=== PATIENT | female | born 1945 | race Caucasian/White ===

== ENCOUNTER 2019-05-15 08:49 | Day surgery (SDC) | payer MEDICARE ==
[2019-05-14 16:38] LABS: BASOPHILS % (AUTO) 0.4 % (0.0-5.0); EOSINOPHILS % (AUTO) 4.1 % (0.0-8.0); HEMATOCRIT 40.8 % (36-48); LYMPHOCYTES % (AUTO) 19.2 % (21.0-51.0); MEAN CORPUSCULAR HEMOGLOBIN 28.3 pg (27.0-33.0); MEAN CORPUSCULAR HGB CONC 31.9 g/dL (32.0-36.0); MEAN CORPUSCULAR VOLUME 88.9 fL (79-99); MONOCYTES % (AUTO) 7.6 % (3.0-13.0); NEUTROPHILS % (AUTO) 68.5 % (40.0-77.0); PLATELET COUNT (AUTO) 270 K/uL (130-400); RED BLOOD CELL COUNT(AUTO) 4.59 MIL/uL (4.00-5.50); RED CELL DISTRIBUTION WIDTH 14.4 % (11.0-15.5); WHITE BLOOD COUNT (AUTO) 4.6 K/uL (4.8-10.8)
[2019-05-14 16:50] VITALS: BP 138/65
[2019-05-14 16:55] LABS: CREATININE 0.8 mg/dL (0.5-1.5); POTASSIUM 4.2 mmol/L (3.5-5.1)
--- NOTE | 2019-05-14 18:42 | NUR ---
EKG DR. CUEVAS INFORMED OF EKG. NO ORDERS RECEIVED. PROCEED WITH PLANNED PROCEDURE.
[~2019-05-15] VITALS: Ht 167.6 cm; Wt 78.0 kg
[2019-05-15] VITALS (20 sets, daily range): BP systolic 93–117; BP diastolic 43–59
[~2019-05-15 08:49] MED LIST: ADV250 IH; ALBU0.63 IH; ALBU8.5H8 IH; ASPI-555 PO; CEFAZOLIN SODIUM 1 GM VIAL IVP ONE; CELE200C PO; COLE625 PO; FEXO1TAB8 PO; LACTATED RINGERS 1000ML 1,000 ML IV SCH; LEVO50TA4 PO; OMEG-116 PO; TRAM50TA4 PO
[2019-05-15] MEDS ORDERED: CEFAZOLIN SODIUM 1 GM VIAL ONE (09:46)
[2019-05-15] MEDS ORDERED: ROPIVACAINE 0.5% 5MG/ML 30ML IJ ONE (10:59)
[2019-05-15] MEDS ORDERED: MIDAZOLAM HCL 1 MG/ML 2ML VIAL ONE (11:04)
[2019-05-15] MEDS ORDERED: PROPOFOL 10 MG/ML 20ML VIAL IV ONE (11:04)
[2019-05-15] MEDS ORDERED: ROCURONIUM 10MG/1ML SYR 10 MG/ML ML ONE (11:04)
[2019-05-15] MEDS ORDERED: FENTANYL CITRATE PF 50 MCG/1 ML 5ML AMP IV ONE (11:04)
[2019-05-15] MEDS ORDERED: LIDOCAINE PF 2% 5ML ABBOJECT ONE (11:04)
[2019-05-15] MEDS ORDERED: EPHEDRINE SULFATE 50 MG/ML AMPULE ONE (11:13)
[2019-05-15] MEDS ORDERED: GLYCOPYRROLATE 1 MG/5 ML SYRINGE ONE (11:17)
[2019-05-15] MEDS ORDERED: NEOSTIGMINE 5MG/5ML SYR IV ONE (11:17)
[2019-05-15] MEDS ORDERED: ONDANSETRON HCL 4 MG/2 ML VIAL ONE ×2 (12:20→12:57)
[2019-05-15] MEDS ORDERED: KETOROLAC TROMETHAMINE 30MG/ML ONE (12:20)
[2019-05-15] MEDS ORDERED: DEXAMETHASONE SOD PHOSPHATE 10MG/ML 1ML VIAL ONE (12:20)
[2019-05-15] MEDS ORDERED: METOCLOPRAMIDE 10 MG/2 ML VIAL ONE (13:07)
--- NOTE | 2019-05-15 13:25 | NUR ---
PHENERGAN 6.25MG IM. GIVEN TO RT DELTOID, IM. Addendum: 05/15/19 at 1338 by PAL GUEVARA RN RN Amended: Links added.
== END 2019-05-15 15:15 | disposition home or self-care (01) ==
LOC: DAH 08:49
PROVIDERS: ATTEND Orthopaedic Surgery
DX: M75.102 Unspecified rotator cuff tear or rupture of left shoulder, not specified as traumatic (principal); M75.122 Complete rotator cuff tear or rupture of left shoulder, not specified as traumatic; M75.52 Bursitis of left shoulder; M75.42 Impingement syndrome of left shoulder; M19.90 Unspecified osteoarthritis, unspecified site; J45.909 Unspecified asthma, uncomplicated; K21.9 Gastro-esophageal reflux disease without esophagitis; I10 Essential (primary) hypertension; E03.9 Hypothyroidism, unspecified; Z88.5 Allergy status to narcotic agent; Z88.8 Allergy status to other drugs, medicaments and biological substances
CPT/HCPCS: 23412; 23415; 36415; 64415; 71045; 76942; 80048; 85025; 93005; A4215; A4221; A4222; A4223; A4450; A4565; A4606; A4649 ×2; A4663; A4930; A6204; A6207; A6223; A6260; C1713 ×2; J0690; J1100; J1885; J2001; J2250; J2405 ×2; J2704; J2710; J2765; J2795; J3010; J3490 ×2; J7120 ×2

== ENCOUNTER → 2023-04-05 | Outpatient (CLI) | payer MEDICARE ==
[~2023-04-05] MED LIST changes: -ASPI-555 PO; +ASPI-556 PO; -CEFAZOLIN SODIUM 1 GM VIAL IVP ONE; -COLE625 PO; +COLE625T30 PO; -LACTATED RINGERS 1000ML 1,000 ML IV SCH
== END | disposition home or self-care (01) ==
LOC: RAH 10:35
PROVIDERS: ATTEND Internal Medicine Gastroenterology
DX: R10.13 Epigastric pain (principal)
CPT/HCPCS: 74150

== ENCOUNTER → 2023-08-03 | Outpatient (CLI) | payer MEDICARE ==
[~2023-08-03] MED LIST changes: -CELE200C PO; +CELE200C3 PO
== END | disposition home or self-care (01) ==
LOC: RAH 11:12
PROVIDERS: ATTEND Surgery
DX: R10.9 Unspecified abdominal pain (principal)
CPT/HCPCS: 78227; A9537

== ENCOUNTER → 2024-02-09 | Outpatient (CLI) | payer MEDICARE ==
[~2024-02-09] MED LIST changes: +ALEN35TA53 PO; +CETI-89 PO; +CYAN100022 SL; +FAMO20TA8 PO; +FLUT1DIS3 IH; +MONT-39 PO; +PYRI100L2 PO; +SUCR1ORA15 PO; +SUPER B COMPLEX PO; +TRAM100T34 PO; +UBID100T7 PO
--- NOTE | 2024-02-09 12:18 | HMCIMG ---
UPPER GI TRACT, WO KUB REASON: DIAPHRAGMATIC HERNIS W/O OBSTRUCTION OR GANGRENE COMPARISON: None TECHNIQUE: Air contrast upper GI was performed with fluoroscopic observation. Fluoroscopy time was 0.6 minutes. 6 short cine sequences were acquired. FINDINGS: There is a moderate-sized hiatal hernia. Esophagus appears otherwise unremarkable. There is normal esophageal peristalsis. There is intermittent reflux into the hiatal hernia and into the esophagus during the exam, to the level of the thoracic inlet, with mild distention of the lower cervical esophagus. Stomach appears otherwise normal. There is no mass or ulcer. There is no outlet obstruction. Duodenal C-loop appears normal as does the duodenal bulb. IMPRESSION: 1. Moderate hiatal hernia. 2. Moderate to marked intermittent gastroesophageal reflux. 2. Otherwise unremarkable exam.
== END | disposition home or self-care (01) ==
LOC: RAH 10:00
PROVIDERS: ATTEND Surgery
DX: K44.9 Diaphragmatic hernia without obstruction or gangrene (principal); K21.9 Gastro-esophageal reflux disease without esophagitis
CPT/HCPCS: 36415; 74240; 86850; 86900; 86901

== ENCOUNTER 2024-04-17 10:36 | Observation (INO) | payer MEDICARE ==
[2024-04-13 11:49] VITALS: BP 128/88; PULSE 51; RESP 14; TEMP 98.4
[2024-04-13 11:55] LABS: EOSINOPHILS # (AUTO) 0.04 K/uL (0.00-0.70); EOSINOPHILS % (AUTO) 1.2 % (0.0-8.0); HEMATOCRIT 42.4 % (36-48); IMMATURE GRANULOCYTE ABSOLUTE 0.01 K/uL (0-1); LYMPHOCYTES # (AUTO) 0.5 K/uL (1.0-4.8); LYMPHOCYTES % (AUTO) 15.1 % (21.0-51.0); MEAN CORPUSCULAR HEMOGLOBIN 30.9 pg (27.0-33.0); MEAN CORPUSCULAR VOLUME 93.6 fL (79-99); MONOCYTES # (AUTO) 0.4 K/uL (0.1-1.0); MONOCYTES % (AUTO) 10.2 % (3.0-13.0); NEUTROPHILS # (AUTO) 2.5 K/uL (1.8-7.7); NEUTROPHILS % (AUTO) 73.2 % (40.0-77.0); PLATELET COUNT (AUTO) 207 K/uL (130-400); RED BLOOD CELL COUNT(AUTO) 4.53 MIL/uL (4.00-5.50); RED CELL DISTRIBUTION WIDTH 14.1 % (11.0-15.5); WHITE BLOOD COUNT (AUTO) 3.4 K/uL (4.8-10.8)
[2024-04-13 12:13] LABS: INR 0.95 (0.85-1.15); PROTHROMBIN TIME 10.7 SEC (9.6-11.6)
[2024-04-13 12:14] LABS: PARTIAL THROMBOPLASTIN TIME 27.4 SEC (26.3-35.5)
[2024-04-13 12:15] LABS: CREATININE 0.9 mg/dL (0.5-1.0); POTASSIUM 5.3 mmol/L (3.5-5.1)
--- NOTE | 2024-04-16 11:23 | EKG ---
[facility] Test Date: 2024-04-13 Test Time: 12:36:08 Pat Name: ELIZA DOYLE Department: [facility] Room: Gender: F [employer]er: [id number] : 1945 Requested By: ARTHUR CUEVAS Order Number: [id number] Reading MD: Cathy Lopez Measurements Intervals [place] Rate: 44 P: 25 OR: 228 QRS: 31 QRSD: 82 T: 54 QT: 438 QTc: 347 Interpretive Statements Sinus bradycardia Atrial premature complexes in couplets Borderline prolonged OR interval Probable anteroseptal infarct, old Compared to ECG 05/14/2019 15:56:49 Atrial premature complex(es) now present Myocardial infarct finding now present Poor R-wave progression no longer present Electronically Signed On 04-16-2024 14:04:33 [employer] by Cathy Lopez Please click the below link to view image of tracing.
--- NOTE | 2024-04-16 11:33 | NUR ---
RE: LABS/EKG REPORTED EKG RESULTS AND BMP RESULTS TO DR CUEVAS, NO NEW ORDERS RECEIVED.
[2024-04-17] VITALS (24 sets, daily range): BP systolic 92–152; BP diastolic 52–97; PULSE 48–66; RESP 13–20; TEMP 97.5–98.6; O2SAT 96
[~2024-04-17] VITALS: Ht 166.4 cm; Wt 77.7 kg
[~2024-04-17 10:36] MED LIST changes: -ADV250 IH; -ALBU0.63 IH; -ASPI-556 PO; -COLE625T30 PO; -FEXO1TAB8 PO; -OMEG-116 PO; -TRAM100T34 PO
[2024-04-17 11:47] LABS: CREATININE 0.8 mg/dL (0.5-1.0); POTASSIUM 4.4 mmol/L (3.5-5.1)
[2024-04-17] MEDS: LACTATED RINGERS 1000ML 1,000 ML IV ONE (12:05)
[2024-04-17] MEDS: ceFAZolin SODIUM 2 GM VIAL ONE (12:05)
[2024-04-17] MEDS ORDERED: LIDOCAINE HCL MPF 1% 5ML VIAL ONE (14:12)
[2024-04-17] MEDS ORDERED: proPOFol 10 MG/ML 20ML VIAL IV ONE (14:12)
[2024-04-17] MEDS ORDERED: rocuRONium bROMide 10MG/1ML 5ML VL ONE (14:13)
[2024-04-17] MEDS ORDERED: MIDAZOLAM HCL 1 MG/ML 2ML VIAL ONE (14:13)
[2024-04-17] MEDS ORDERED: FENTanyl CITRate PF 50 MCG/1 ML 5ML AMP IV ONE (14:13)
[2024-04-17] MEDS ORDERED: GLYCOPYRROLATE 0.2 MG/ML 5 ML VIAL ONE (14:17)
[2024-04-17] MEDS: INDOCYANINE GREEN 25 MG VIAL IJ ONE (14:30)
[2024-04-17] MEDS: BUPIvacaine/PF 0.25% 30ML VIAL IJ ONE (14:41)
[2024-04-17] MEDS ORDERED: NEOSTIGMINE METHYLSULFATE 1MG/ML IV ONE (16:27)
--- NOTE | 2024-04-17 17:09 | OP ---
Operative Note: DATE OF PROCEDURE: 04/17/24 SURGEON: BRITTA PACHECO MD [employer] OPERATOR: [Please review operative record] ANESTHESIA: [General and local] ANESTHESIOLOGIST/GEOTECHNICAL INTERN: [Please review operative record] PREOPERATIVE DIAGNOSIS: [Diaphragmatic hernia, severe gastroesophageal reflux disease, biliary dyskinesia] POSTOPERATIVE DIAGNOSIS: [Same] SYNOPSIS: [Mildly inflamed gallbladder, hiatal hernia measuring 4 cm containing incarcerated fundus and cardia.] PROCEDURE: [Robotic assisted laparoscopic hiatal hernia repair, mesh placement, anterior partial fundoplication, intraoperative EGD, robotic assisted laparoscopic cholecystectomy, ICG green cholangiogram] ESTIMATED BLOOD LOSS: [20 cc] INDICATIONS: [Patient is a 79-year-old female with chronic reflux who failed medical management with PPI and dietary changes. Found to have a moderate-sized diaphragmatic hernia on EGD and upper GI. In addition patient found to have right upper quadrant postprandial abdominal pain. Found to have biliary dyskinesia on HIDA scan. Recommendation was given for hiatal hernia repair with mesh and fundoplication in addition to cholecystectomy. Risks, benefits, alternatives were discussed with the patient. All questions were answered. Patient agreed to proceed with surgical procedure.] DESCRIPTION OF PROCEDURE: [After appropriate consent was obtained, the patient was transferred to the operating room placed in supine position on the operating table. SCDs were placed, preop antibiotics were given. Patient underwent induction of general anesthesia, endotracheal intubation. Patient was then prepped and draped in usual sterile fashion. Time-out was performed. Through a left subcostal incision, Veress needle was inserted through the peritoneal cavity. Insufflation was allowed to 12 mmHg. Through a supraumbilical incision, 8 mm trocar and laparoscope were inserted into the peritoneal cavity using [employer]. Veress needle and this vicinity were examined with no signs of injury. Rest of my trocars were placed under direct visualization. Patient was positioned in a reverse Trendelenburg at 20. Through a 5 mm incision, Dee liver retractor was placed intra-abdominally in order to retract the left lobe of the liver anteriorly. The Andre robot was docked. Upon evaluation of the diaphragmatic hiatus, there was a 4 cm diaphragmatic defect containing incarcerated cardia and fundus of the stomach. Our dissection began by incising the hepatogastric ligament and in the avascular plane. This was followed cephalad towards the diaphragm using vessel sealer. The hiatal orifice was dissected circumferentially using the vessel sealer. Right crura was identified and a plane was developed between the right andrea in the right wall of the esophagus. The dissection was accomplished with a combination of both vessel sealer and blunt dissection. On the posterior aspect of the esophageal wall, the left andrea was identified. This dissection was followed towards the left andrea. A few short gastrics were divided in order to fully mobilize the fundus of the stomach. Once the esophagus was fully mobilized, we focused in the intra mediastinal dissection. Again this was accomplished mostly with blunt dissection very little vessel sealer dissection. Once there was 3 cm of intra-abdominal esophagus, we then passed the endoscope through the mouth into the esophagus and into the stomach. With the endoscope in place, we then proceeded to perform our crural plasty. This was achieved by approximating the left and the right crura on the posterior aspect of the esophagus using two 0 V lock nonabsorbable suture in a running fashion. At the end of the crural plasty only one instrument was able to pass through the diaphragmatic hiatus. An 8 cm Phasix round mesh with a horseshoe configuration was then used to reinforce the repair. This mesh was sutured in place using 3-0 absorbable V lock suture in a running fashion in a couple of simple interrupted 2-0 silks. At this time we focused on creating a partial anterior fundopli cation. Of note the endoscope remained in the stomach during this whole time. The fundus was grasped and passed from left to right anteriorly to the esophagus and sutured in place to the right andrea and diaphragm using 2-0 silk suture in a running fashion. Endoscopy with insufflation revealed no air leak, no stenosis, appropriate reduction of hiatal hernia and intact wrap. Once this was accomplished, we then proceeded to complete the cholecystectomy. Upon evaluation of the gallbladder, it appeared mildly inflamed. The gallbladder fundus was grasped and retracted cephalad, the gallbladder infundibulum was retracted medially and laterally in order to expose Calot's triangle. Calot's triangle was dissected using a combination of blunt and hook electrocautery. Using ICG green, cholangiography was performed, this allowed to appropriately identify the cystic duct. No ductal filling defects were encountered, a ductal dilatation. The cystic duct was clipped 2 times proximally and one time distally, sharply divided with scissors with two clips staying behind. The cystic artery was then and this was cauterized using bipolar energy. Gallbladder was dissected off the gallbladder fossa using bipolar energy. Once removed from the gallbladder fossa, the gallbladder was placed in an Endo-Catch bag. Hemostasis on the gallbladder fossa was obtained with bipolar energy. At this time the Andre robot was undocked. Gallbladder was removed through an 8 mm port site. Final inspection revealed intact hernia repair, no concerns for bleeding or leakage. Counts were correct at the end of the case. At this time all instruments were removed. Abdomen was deflated. Skin incisions were closed with 4-0 Monocryl. Dermabond was applied over the incision. Patient tolerated the procedure well. Patient was transferred to recovery in a stable condition.] BRITTA PACHECO MD Apr 17, 2024 17:09
[2024-04-17] MEDS: ondanSETRON 4MG INJ ONE (17:18)
[2024-04-17] MEDS: MEPERIDINE-PF 25 MG/ML SYG ONE (17:19)
[2024-04-17] MEDS: metoCLOPRAmide 10 MG/2 ML VIAL ONE (17:19)
[2024-04-17] MEDS ORDERED: hydroMORPHone 0.5 MG SYG (0.5MG/0.5ML) IVP PRN (17:30)
[2024-04-17] MEDS ORDERED: ondanSETRON 4MG INJ IVP PRN (17:30)
[2024-04-17] MEDS ORDERED: HYDROcod/acetaMINOPHEN 7.5/325 MG 15 ML UDCUP PO PRN (17:30)
[2024-04-17] MEDS ORDERED: PROCHLORPERAZINE 10MG/2ML INJ IV PRN (17:30)
[2024-04-17] MEDS ORDERED: ALBUTEROL INHALER 90MCG/INH IH PRN (18:00)
[2024-04-17] MEDS: acetaMINOPHEN 100 ML ONE (18:22)
[2024-04-17] MEDS: FAMOTIDINE 20MG VIAL IV ONE (18:22)
[2024-04-17] MEDS: SCOPOLAMINE HYDROBROMIDE 1 EACH ADH..PATCH TD ONE (18:22)
[2024-04-17] MEDS: LACTATED RINGERS 1000ML 1,000 ML IV SCH (18:27)
[2024-04-17] MEDS: ketOROlac 15MG/ML VIAL (15MG/ML) IV PRN (18:32)
[2024-04-18 04:00] VITALS: BP 126/56; PULSE 47; RESP 20; TEMP 98.7
[2024-04-18] MEDS: levoTHYROxine 50 MCG TABLET PO SCH (06:47)
[2024-04-18 08:00] VITALS: BP 134/57; PULSE 49; RESP 18; TEMP 98
[2024-04-18 08:30] VITALS: O2SAT 99
[2024-04-18] MEDS: FAMOTIDINE 20MG VIAL IV SCH (08:36)
--- NOTE | 2024-04-18 09:08 | PN ---
GENERAL SURGERY PROGRESS NOTE Date/Time Patient Seen: [April 18, 2024 at 8:30 a.m. ] Problem List: [ ] Interval History: [ The patient is a pleasant 79-year-old female s/p hiatal hernia repair with partial fundoplication and cholecystectomy with intraoperative cholangiogram. The patient is awake alert and oriented x3 and resting comfortably in bed. The patient is not in acute distress. The patient is tolerating a clear liquid diet without any upper or lower GI issues. The patient endorses pain that is albaro able with p.r.n. medication. The patient states she has been burping, has not ambulated. The patient reports minimal flow voids, stating she has baseline issues with urination. Overall the patient is clinically stable. Vital signs stable with the exception of low heart rate. Patient asymptomatic. Likely baseline as well. The patient is overall happy with the procedure and is interested in going home today.] Current Medications Medications (Trade) Dose Ordered Sig/Javy Route Start Time Stop Time Status Last Admin Dose Admin Enoxaparin Sodium (Lovenox) 30 mg Q12H SQ 04/18/24 10:00 05/18/24 09:59 Famotidine (Pepcid 20mg Vial) 20 mg DAILY IV 04/18/24 09:00 05/18/24 08:59 04/18/24 08:36 20 MG Lactated Ringer's 1,000 ml @ 100 mls/hr Q10H IV 04/17/24 17:30 05/17/24 17:29 04/18/24 03:04 100 MLS/HR Levothyroxine Sodium (SYNTHroid 50MCG TAB) 50 mcg SYN PO 04/18/24 07:30 05/18/24 07:29 04/18/24 06:47 50 MCG Salmeterol Xinafoate/ Fluticasone (ADVair 100-50 DISKUS) BID IH 04/17/24 21:00 05/17/24 20:59 Physical Examination: GENERAL: [No acute distress.] HEAD: [Normal with no signs of head trauma.] EYES: [PERRLA, EOMI, conjunctiva and sclera normal.] ENT: [Hearing grossly intact, normal oropharynx.] NECK: [Supple without JVD. There is no tenderness, lymphadenopathy, or masses. No thyromegaly. Normal carotid upstrokes without bruits.] LUNGS: [Clear breath sounds bilaterally. There are right basilar rales one third of the way up the chest. No wheezes, or rhonchi.] HEART: [Normal rate and rhythm. Normal S1 and S2 without mumurs, gallop or rub.] VASC: [Peripheral pulses +2 bilaterally.] ABD: [Bowel sounds normal, soft, nontender, no masses, no organomegaly. No audible bruits.] : [Not examined] LYMPH: [No lymphadenopathy noted.] EXT: [No clubbing, cyanosis or edema.] SKIN: [No rashes or lesions noted.] NEURO: [Awake, alert, and oriented x3. No focal sensory or strength deficits noted.] Vital Signs (last 8hr) Date Time Temp Pulse Resp B/P (MAP) Pulse Ox O2 Delivery O2 Flow Rate FiO2 04/18/24 08:00 98.1 49 18 134/57 99 Room Air 04/18/24 04:00 98.8 47 20 126/56 97 Room Air Laboratory: [ ] Chemistry Labs: Test 04/17/24 11:10 Range/Units Sodium Level 143 136-145 mmol/L Potassium Level 4.4 3.5-5.1 mmol/L Chloride Level 106 101-111 mmol/L Carbon Dioxide Level 29 21-32 mmol/L Blood Urea Nitrogen 12 7-18 mg/dL Creatinine 0.8 0.5-1.0 mg/dL Glomerular Filtration Rate Calc 76 >90 mL/min Random Glucose 110 H 70-105 mg/dL Total Calcium 9.6 8.5-10.1 mg/dL Impression and Plan: [Postoperative day one The patient is progressing well. We will continue to monitor and treat pain as needed. GI for/DVT prophylaxis recommended and encouraged. Incision care, hydration, activity and dietary restrictions discussed with the patient. The patient understands and agrees. The plan is to ambulate the patient with physical therapy. Discharge for today. Postoperative medication and follow-up appointment established by my office staff. ] ALISON CARO Apr 18, 2024 09:08
--- NOTE | 2024-04-18 09:09 | DS ---
Discharge Summary Assessment The patient is progressing well. Tolerated the procedure well. No signs of complications. Hospital Course Postoperative day one The patient is progressing well. We will continue to monitor and treat pain as needed. GI for/DVT prophylaxis recommended and encouraged. Incision care, hy dration, activity and dietary restrictions discussed with the patient. The patient understands and agrees. The plan is to ambulate the patient with physical therapy. Discharge for today. Postoperative medication and follow-up appointment established by my office staff. ALISON CARO Apr 18, 2024 09:09
[2024-04-18 12:00] VITALS: BP 130/64; PULSE 51; RESP 19; TEMP 98.6
[2024-04-18] MEDS: ENOXAPARIN SODIUM 30 MG/0.3 ML SQ SCH (12:13)
--- NOTE | 2024-04-18 13:00 | NUR ---
DC NOTE DC INSTRUCTIONS AND FOLLOW UP APPOINTMENT ALREADY ESTABLISH WITH OFFICE AND E-SCRIPT WAS SENT TO PT'S LOCAL PHARMACY FROM PHYSICIAN'S OFFICE. PIV REMOVED, CATHETER INTACT, DENIES ANY PAIN OR DISCOMFORT. PT IS WHEELED DOWNSTAIRS WITH CORK GRINDER INTO VIA PRIVATE CAR. NO FURTHER COMMENTS OR CONCERNS AT THIS TIME.
== END 2024-04-18 13:00 | disposition home or self-care (01) ==
LOC: DAH 10:36 → INTOOBSV 10:37 → DAH 10:37 → DAHIP 10:37 → 3AH 17:50
PROVIDERS: ADMIT Surgery; ATTEND Surgery
DX: K82.8 Other specified diseases of gallbladder (principal); K44.9 Diaphragmatic hernia without obstruction or gangrene; E78.5 Hyperlipidemia, unspecified; K20.90 Esophagitis, unspecified without bleeding; K22.9 Disease of esophagus, unspecified; K81.9 Cholecystitis, unspecified; K21.9 Gastro-esophageal reflux disease without esophagitis; J45.909 Unspecified asthma, uncomplicated; E03.9 Hypothyroidism, unspecified; Z90.49 Acquired absence of other specified parts of digestive tract; Z79.899 Other long term (current) drug therapy; Z90.710 Acquired absence of both cervix and uterus
CPT/HCPCS: 80048 ×2; 85025; 85610; 85730; 86850; 86900; 86901; 36415 ×2; 93005; 43282; 47563; 96374; 88304; 74300; 96376; 96372; 96375; A6260; A4223 ×2; A4600; A4663; A4215 ×2; J7120; J3490 ×5; J3010; J0665; J2250; J2704; J2405; J2710; J2175; J2765; J1885 ×2; J0690; C1781; A4930; A4213; A4222; A4221; A4216; G0378 ×4; J1650; 43235